=== PATIENT | male | born 2000 | race Caucasian/White ===

== ENCOUNTER 2018-09-26 23:42 | Inpatient (IN) ==
[2018-09-27] MEDS ORDERED: Sod Chloride 0.9% Inj 1,000 ML IV.SIG SCH
[2018-09-27] MEDS ORDERED: ceFAZolin 2 GM Premix Inj 2 GM/50 ML PIGGYBACK IV.SIG ONE (00:02)
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
[2018-09-27] MEDS ORDERED: Morphine Sulfate Inj 2 MG/ML Vial IV.PUSH ONE (00:21)
[2018-09-27] MEDS ORDERED: Morphine Inj 4 MG/ML Vial ONE (00:22)
[2018-09-27 00:26] LABS: Baso % (Auto) 0.2 % (0.0-2.0); Hematocrit 39.7 % (39.0-51.0); Hemoglobin 13.2 gm/dL (13.0-17.0); Lymph % (Auto) 4.9 % (9.0-44.0); Mean Corpuscular HGB Conc 33.2 % (32.0-36.0); Mean Corpuscular Hemoglobin 28.9 pg (27.0-34.0); Mean Corpuscular Volume 87.1 fL (80.0-100.0); Mean Platelet Volume 7.6 fL (7.0-11.0); Mono # (Auto) 1.6 th/mm3 (0.0-0.9); Mono % (Auto) 7.8 % (0.0-8.0); Neut # (Auto) 18.2 th/mm3 (1.8-7.7); Neut % (Auto) 87.1 % (16.0-70.0); Platelet Count 293 th/mm3 (150-450); Red Blood Count 4.55 mil/mm3 (4.50-5.90); Red Cell Distribution Width 13.8 % (11.6-17.2); White Blood Count 20.9 th/mm3 (4.0-11.0)
[2018-09-27 00:36] LABS: INR 1.1 Ratio; Prothrombin Time 10.8 sec (9.8-11.6)
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
[2018-09-27] MEDS ORDERED: Morphine Inj 4 MG/ML Vial IV.PUSH PRN ×2 (03:46→09:35)
[2018-09-27] MEDS: Sod Chloride 0.9% Inj 1,000 ML IV.SIG SCH ×2 (03:58→13:34)
[2018-09-27] MEDS ORDERED: ceFAZolin Inj 1 GM in Sodium Chlor 0.9% Inj 100 ML IV.SIG SCH (07:00)
[2018-09-27 07:04] LABS: Anion Gap 6 meq/L (5-15); Blood Urea Nitrogen 9 mg/dL (7-18); Calcium 8.3 mg/dL (8.5-10.1); Carbon Dioxide 25.9 meq/L (21.0-32.0); Chloride 106 meq/L (98-107); Glomerular Filtration Rate Greater Than 89 mL/min (>89); Glucose,Random 108 mg/dL (74-106); Sodium 138 meq/L (136-145)
[2018-09-27] MEDS ORDERED: Acetaminophen 325 MG Tablet PO PRN (07:12)
[2018-09-27] MEDS ORDERED: Potassium Phosphate Inj 30 MMOL in Sodium Chlor 0.9% Inj 250 ML IV.SIG PRN (07:14)
[2018-09-27] MEDS ORDERED: Potassium Chlor 40 mEq Premix 40 MEQ/100 ML PIGGYBACK IV.SIG PRN ×2 (07:14)
[2018-09-27] MEDS ORDERED: Sodium Phosphate Inj 30 MMOL in Sodium Chlor 0.9% Inj 250 ML IV.SIG PRN (07:14)
[2018-09-27] MEDS ORDERED: Magnesium Sulfate Inj 2 GM in Sodium Chlor 0.9% Inj 96 ML IV.SIG PRN (07:14)
[2018-09-27] MEDS ORDERED: Potassium Phosphate 500 MG Soluble Tablet PO PRN ×2 (07:14)
[2018-09-27] MEDS ORDERED: Potassium Chlor 20 mEq Premix 20 MEQ/100 ML PIGGYBACK IV.SIG PRN ×2 (07:14)
[2018-09-27] MEDS ORDERED: Magnesium Sulfate Inj 4 GM in Sodium Chlor 0.9% Inj 92 ML IV.SIG PRN (07:14)
[2018-09-27] MEDS ORDERED: Potassium Chloride Liq 20 MEQ/15 ML UDC PO PRN ×2 (07:14)
[2018-09-27] MEDS ORDERED: Magnesium Oxide 400 MG Tablet PO PRN (07:14)
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
[2018-09-27] MEDS ORDERED: Tranexamic Acid Inj 1,000 MG/10 ML Ampul ONE (07:59)
[2018-09-27] MEDS ORDERED: Sod Chloride 0.9% Inj 1,000 ML IV.CONT SCH (08:00)
[2018-09-27] MEDS ORDERED: ceFAZolin 1 GM Premix Inj 2 GM/100 ML PIGGYBACK IV.SIG ONE (08:06)
[2018-09-27] MEDS ORDERED: Senna/Docusate Sodium 8.6/50 MG Tablet PO SCH (09:00)
[2018-09-27] MEDS ORDERED: Tranexamic Acid Inj 1,000 MG in Sodium Chlor 0.9% Inj 100 ML IV.SIG SCH ×4 (09:16→11:30)
[2018-09-27] MEDS ORDERED: Sodium Chloride 0.9% 2 ML Flush PRN IV.FLUSH (09:27)
[2018-09-27] MEDS ORDERED: Aluminum/Magnesium/Simethacone Susp 30 ML UDC PO PRN (09:35)
[2018-09-27] MEDS ORDERED: Bisacodyl 10 MG Supp RECTAL PRN (09:35)
[2018-09-27] MEDS ORDERED: Post-op Orders (for Pharmacy) OTHER STA (09:35)
[2018-09-27] MEDS ORDERED: Zolpidem Tartrate 5 MG Tablet PO PRN (09:35)
--- NOTE | 2018-09-27 09:42 | P.OP ---
Preoperative Diagnosis: Left grade 3A open tibia/fibula fracture Postoperative Diagnosis: Same Date of procedure: 09/27/18 Procedure: Left leg irrigation of skin and subcutaneous tissue, muscle, and bone for open fracture. Left leg open treatment of tibia fracture with intramedullary nail Anesthesia: SOFIYA Surgeon: Hunter Dunn MD Director Corporate Communications: HASEEB Francis The surgical procedure was assisted by my Advanced Registered Nurse Practitioner. My DISTRICT MEDICAL EXAMINER presence was necessary throughout this case for the manipulation and positioning of the surgical extremity. My DISTRICT MEDICAL EXAMINER was assisting me throughout the duration of this procedure. The skill set of an Advance Registered Nurse Practitioner was medically necessary to complete this procedure. During the surgical case, the instructional technology coach was working at the back table and the Advance Registered Nurse Practitioner was directly assisting me. Operation and Findings: Implants: Synthes tibial nail, size: 10 x 315 Estimated blood loss: 250 cc The patient received intravenous vancomycin and Ancef. After the appropriate anesthesia was administered, the patient was prepped and draped in the supine position in the usual sterile fashion. Skin assessment showed a 4 cm fairly simple transverse laceration over the fracture site. There was a small amount of gross contamination. There was mild swelling noted to the leg. We extended the laceration more laterally. We remove the gross contamination with a rondure. This was a couple of small specks of what looked like dirt. We did find a little bit of dirt ground into the end of the bone. We remove this with a combination of rondure and curette. There was minimal contamination within the muscle which was removed. The visualized muscle was in good condition. We made sure that there was no further contamination within the bone or soft tissues. There was a single small to moderate-sized butterfly fragment which was removed as it was devitalized of all soft tissue. We then thoroughly irrigated with 3 L of saline utilizing a pulse lavage. We exchanged instruments, gloves, and new underlying drape. We made incision proximal to the patella. We carefully dissected down to the quadriceps tendon. An in-line longitudinal split to the quadriceps tendon was completed. The capsule of the knee was entered. We placed the smooth trocar within the knee joint down to the proximal tibia, protecting the patella and trochlea during the case. We then reduced the tibia fracture manually and under fluoroscopic imaging. A ball-tipped guidewire was placed into the tibial shaft, passing the fracture site. This was placed down to the distal physeal line of the tibia. We then sequentially reamed the tibia to 1 mm larger than the implanted tibial nail. We obtained good cortical chatter. We measured the appropriate length for the tibial nail. We then passed the tibial nail into the medullary canal of the tibia. The fracture was anatomically reduced as the nail was passed. I could also visualize the fracture through the open wound which showed anatomic alignment. There is good cortical apposition. The nail was secured proximally with 2 screw, using the associated jig as a guide .We used the perfect [place] technique distally to visualize the distal tibial screw holes. We placed 2 screws distally. We thoroughly irrigated the incisions including a lavage of the arthrotomy site proximally. The quadriceps split was closed with a #1 Vicryl. The remaining incisions were closed with #2-0 Vicryl, followed by jody. The traumatic wound was closed with 2-0 Vicryl followed by 2-0 nylon. The postoperative plan is for 25% weightbearing. Chemical DVT prophylaxis will be performed with aspirin.
--- NOTE | 2018-09-27 10:01 | XR ---
EXAM DATE: 09/27/2018 9:55 AM EST AGE/SEX: 18 years / Male INDICATIONS: Post hardware placement left tibia CLINICAL DATA: This is the patient's subsequent encounter. Patient reports that signs and symptoms h ave been present for 2 days and indicates a pain score of Nonresponsive. MEDICAL/SURGICAL HISTORY: None. None. COMPARISON: Unknown, LEFT TIBIA, 09/27/2018. [facility], TIBIA FIBULA LEFT 2V, 09/27/2018. . FINDINGS: Fluoroscopic imaging of the left tibia and fibula demonstrate intramedullary fartun traversing the mid d iaphyseal tibial fracture with good anatomic alignment. Stable appearance of a comminuted left mid ti bial fracture with slight lateral displacement. CONCLUSION: Interval fixation of the mid tibial fracture with good anatomic alignment. Stable appearance of a min imally displaced comminuted left mid fibular fracture. Electronically signed by: Devi Coyle MD Board Certified Radiologist 09/27/2018 10:00 AM LISA Ayala
[2018-09-27] MEDS ORDERED: fentaNYL Citrate Inj 100 MCG/2 ML Ampul ONE ×2 (10:17)
[2018-09-27] MEDS: Pantoprazole Inj 40 MG Vial IV.PUSH SCH (12:10)
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
--- NOTE | 2018-09-27 15:07 | OTSOAPIP ---
PATIENT UNDERGOING SURGICAL INTERVENTION OF LEFT TIB/FIB FRACTURE. WILL PLAN TO EVALUATE PATIENT NEXT DAY. Therapist: Dora Ortiz OTR/L Signature on file
[2018-09-27] MEDS: ceFAZolin Inj 1 GM in Sodium Chlor 0.9% Inj 100 ML IV.SIG SCH ×2 (17:56→22:13)
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
[2018-09-27] MEDS ORDERED: Sodium Chloride 0.9% 2 ML Flush BID IV.FLUSH SCH (21:00)
[2018-09-27] MEDS: Senna/Docusate Sodium 8.6/50 MG Tablet PO SCH (22:14)
[2018-09-27] MEDS: Multivitamin/Minerals Therapeutic Tablet PO SCH (22:14)
[2018-09-28] MEDS: Sod Chloride 0.9% Inj 1,000 ML IV.SIG SCH ×2 (01:16→10:11)
[2018-09-28] MEDS: ceFAZolin Inj 1 GM in Sodium Chlor 0.9% Inj 100 ML IV.SIG SCH ×5 (01:17→20:58)
[2018-09-28] MEDS ORDERED: Chlorhexidine Gluconate 2% 1 Pack (2 Cloths) TOPICAL SCH (04:00)
[2018-09-28] MEDS ORDERED: Chlorhexidine Gluconate 2% 1 Pack (2 Cloths) TOPICAL PRN (04:00)
[2018-09-28 06:01] LABS: Baso # (Auto) 0.1 th/mm3 (0.0-0.2); Baso % (Auto) 0.4 % (0.0-2.0); Eos # (Auto) 0.3 th/mm3 (0.0-0.4); Eos % (Auto) 2.3 % (0.0-4.0); Hematocrit 31.2 % (39.0-51.0); Hemoglobin 10.6 gm/dL (13.0-17.0); Lymph # (Auto) 1.3 th/mm3 (1.0-4.8); Lymph % (Auto) 9.4 % (9.0-44.0); Mean Corpuscular HGB Conc 34.1 % (32.0-36.0); Mean Corpuscular Hemoglobin 29.3 pg (27.0-34.0); Mean Corpuscular Volume 85.8 fL (80.0-100.0); Mean Platelet Volume 7.4 fL (7.0-11.0); Mono % (Auto) 7.5 % (0.0-8.0); Neut # (Auto) 10.9 th/mm3 (1.8-7.7); Neut % (Auto) 80.4 % (16.0-70.0); Platelet Count 224 th/mm3 (150-450); Red Blood Count 3.64 mil/mm3 (4.50-5.90); Red Cell Distribution Width 13.6 % (11.6-17.2); White Blood Count 13.6 th/mm3 (4.0-11.0)
[2018-09-28 06:23] LABS: Alanine Aminotransferase 27 U/L (9-52); Albumin 2.9 g/dL (3.4-5.0); Anion Gap 6 meq/L (5-15); Aspartate Aminotransferase 23 U/L (15-39); Blood Urea Nitrogen 8 mg/dL (7-18); Calcium 7.8 mg/dL (8.5-10.1); Carbon Dioxide 28.9 meq/L (21.0-32.0); Chloride 107 meq/L (98-107); Glomerular Filtration Rate Greater Than 89 mL/min (>89); Glucose,Random 129 mg/dL (74-106); Potassium 3.7 meq/L (3.5-5.1); Sodium 142 meq/L (136-145)
[2018-09-28 06:26] LABS: Alkaline Phosphatase 69 U/L (45-117); Creatine Kinase 718 U/L (39-308); Total Protein 5.9 g/dL (6.4-8.2)
[2018-09-28 06:40] LABS: CKMB Percent 0.1 % (0.0-4.0)
[2018-09-28] MEDS: Senna/Docusate Sodium 8.6/50 MG Tablet PO SCH ×2 (08:45→20:57)
[2018-09-28] MEDS: Multivitamin/Minerals Therapeutic Tablet PO SCH ×2 (08:45→20:57)
[2018-09-28] MEDS: Pantoprazole Inj 40 MG Vial IV.PUSH SCH (08:47)
[2018-09-28] MEDS ORDERED: Gadobutrol PF 2 MMOL/2 ML Vial (for RAD) IV.SIG ONE (10:43)
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
--- NOTE | 2018-09-28 12:31 | P.PNOP ---
Subjective Interval history: The patient is resting comfortably in bed in no acute distress. The patient's father is at bedside. The patient reports mild to moderate discomfort to the left lower extremity with movement. Overall the patient's preop pain has improved. Physical Exam Vital signs: Vital Signs 09/27/18 13:00 09/27/18 13:06 09/27/18 21:41 Temperature 98.9 F Pulse Rate 103 H 114 H Respiratory Rate 24 18 Blood Pressure 120/58 L Pulse Oximetry 97 97 95 09/27/18 23:06 09/28/18 00:11 09/28/18 04:10 Temperature 98.5 F 98.7 F Pulse Rate 105 H 112 H Respiratory Rate 18 18 18 Blood Pressure 127/59 L 132/62 Pulse Oximetry 94 L 95 09/28/18 05:26 09/28/18 07:54 09/28/18 08:00 Temperature 99.0 F Pulse Rate 109 H Respiratory Rate 18 18 Blood Pressure 137/74 Pulse Oximetry 95 95 Intake & Output 09/27/18 09/28/18 09/28/18 18:59 06:59 18:59 Intake Total 941.6 / 941.6 3300 / 3300 100 / 100 Output Total 250 / 250 600 / 600 Balance 691.6 / 691.6 2700 / 2700 100 / 100 Intake: IV 190.6 / 190.6 3300 / 3300 100 / 100 LR 1000 mL Inj 1,000 ML @ 80 2000 / 2000 mls/hr IV.CONT .[id number] [facility] Rx# :[id number] NS Inj 1,000 ML @ 100 mls/hr IV 1000 / 1000 .SIG .Q10H [facility] Rx#:[id number] Cyklokapron Inj 1,000 MG In NS 90.6 / 90.6 Inj 100 ML @ 200 mls/hr IV.SIG ONCE [facility] Rx#:[id number] Ancef Inj 1 GM In NS Inj 100 ML 100 / 100 200 / 200 100 / 100 @ 200 mls/hr IV.SIG Q6H [facility] Rx #:[id number] Anesthesia Amount 751 / 751 Output: Urine 600 / 600 Estimated Blood Loss 250 / 250 Other: Date of Last Bowel Movement 09/26/18 09/26/18 Narrative: The patient's dressings are clean, dry, and intact. EHL/TA/G are intact. 2+ pedal pulse. The patient's calf is soft and nontender. Sensation is intact to light touch distally. - Urinary Catheter Management Indwelling Urethral Catheter Cath placed during this visit: no Results - Labs CBC & Chem 7: 09/28/18 04:49 09/28/18 04:49 Laboratory Results - last 24 hr 09/28/18 09/28/18 04:49 04:49 WBC 13.6 H RBC 3.64 L Hgb 10.6 L D Hct 31.2 L MCV 85.8 MCH 29.3 MCHC 34.1 RDW 13.6 Plt Count 224 MPV 7.4 Neut % (Auto) 80.4 H Lymph % (Auto) 9.4 [place] % (Auto) 7.5 Eos % (Auto) 2.3 Baso % (Auto) 0.4 Neut # (Auto) 10.9 H Lymph # (Auto) 1.3 [place] # (Auto) 1.0 H Eos # (Auto) 0.3 Baso # (Auto) 0.1 WBC Differential . Differential Comment Auto diff final Sodium 142 Potassium 3.7 Chloride 107 Carbon Dioxide 28.9 Anion Gap 6 BUN 8 Creatinine 0.90 Estimated GFR Greater than 89 Random Glucose 129 H Calcium 7.8 L Total Bilirubin 0.5 AST 23 ALT 27 Alkaline Phosphatase 69 Total Creatine Kinase 718 H CK-MB (CK-2) Less than 1.0 CK-MB (CK-2) % 0.1 Total Protein 5.9 L Albumin 2.9 L - Imaging Impressions Head CT 09/27/18 00:00 CONCLUSION: 1. Asymmetry in the size of the ventricles with the right larger than the left and slight, 5 mm left to right subfalcine shift. 2. However, there is no findings of cerebral edema or intracranial hemorrhage. I believe the ventricular asymmetry and midline shift is probably patient's baseline. Please correlate with neurologic exam. 3. No fracture. . Head MRI 09/28/18 00:00 CONCLUSION: 1. There are no acute findings. The asymmetry in the ventricular system is nonacute in appearance and likely patient's baseline. Assessment and Plan - Assessment and Plan POD #1: Left leg irrigation of skin and subcutaneous tissue, muscle, and bone for open fracture. Left leg open treatment of tibia fracture with intramedullary nail 1. Weightbearing status: 25% weightbearing on the left lower extremity 2. Aspirin for DVT prophylaxis 3. Ice to the left lower extremity as needed. 4. Anticipatory discharged to custodial facility versus home with home health on Friday after receiving his full course of antibiotics. 5. Stable per orthopedics. Okay to discharge once medically cleared and arrangements have been made. 6. Follow-up in the office with Dr. Dunn or Ruben Quiñones APRN in 1-2 weeks.
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
[2018-09-29] MEDS: Sod Chloride 0.9% Inj 1,000 ML IV.SIG SCH ×2 (00:20→08:03)
[2018-09-29] MEDS: ceFAZolin Inj 1 GM in Sodium Chlor 0.9% Inj 100 ML IV.SIG SCH ×5 (01:57→20:30)
--- NOTE | 2018-09-29 06:49 | P.DCO ---
- Physical Therapy Order: Evaluate and treat, Improve ambulation, Strength and gait training - Home Health Nursing Order: Medical education, Signs/symptoms of disease process, Medication education-adverse effect, Nursing assessment with vital signs - Case Management Consult Case Management Consult-Home Health: Yes - Certification I have seen patient Santos Rich on 09/29/18. My clinical findings support the need for the requested home health care services because: Limited mobility due to disease progression, Deconditioned with increased weakness, Limited ability to care for self, Need for psychosocial assistance, Impaired cognition/judgement, High risk of falls, Infection with risk of complications I certify that my clinical findings support that this patient is homebound because: Post-op weakness, Impaired cognitive ability/safety, Unsteady gait/balance, Unsafe to leave home unassisted, Need for psychosocial assistance, Non- ambulatory: confined to bed or chair, Unable to use public transportation
[2018-09-29] MEDS: Pantoprazole Inj 40 MG Vial IV.PUSH SCH ×2 (07:52→09:34)
[2018-09-29] MEDS: Multivitamin/Minerals Therapeutic Tablet PO SCH ×3 (07:54→20:31)
[2018-09-29] MEDS: Senna/Docusate Sodium 8.6/50 MG Tablet PO SCH ×3 (07:54→20:31)
[2018-09-29 11:02] LABS: Baso # (Auto) 0.1 th/mm3 (0.0-0.2); Baso % (Auto) 0.4 % (0.0-2.0); Eos # (Auto) 0.6 th/mm3 (0.0-0.4); Eos % (Auto) 4.5 % (0.0-4.0); Hematocrit 33.3 % (39.0-51.0); Hemoglobin 11.1 gm/dL (13.0-17.0); Lymph # (Auto) 1.6 th/mm3 (1.0-4.8); Mean Corpuscular HGB Conc 33.3 % (32.0-36.0); Mean Corpuscular Hemoglobin 29.4 pg (27.0-34.0); Mean Corpuscular Volume 88.1 fL (80.0-100.0); Mean Platelet Volume 7.2 fL (7.0-11.0); Mono # (Auto) 1.4 th/mm3 (0.0-0.9); Neut % (Auto) 73.1 % (16.0-70.0); Platelet Count 235 th/mm3 (150-450); Red Blood Count 3.78 mil/mm3 (4.50-5.90); Red Cell Distribution Width 13.9 % (11.6-17.2); White Blood Count 13.7 th/mm3 (4.0-11.0)
[2018-09-29 11:32] LABS: Albumin 2.9 g/dL (3.4-5.0); Anion Gap 7 meq/L (5-15); Aspartate Aminotransferase 27 U/L (15-39); Blood Urea Nitrogen 9 mg/dL (7-18); Calcium 8.2 mg/dL (8.5-10.1); Carbon Dioxide 28.9 meq/L (21.0-32.0); Chloride 106 meq/L (98-107); Glomerular Filtration Rate Greater Than 89 mL/min (>89); Glucose,Random 94 mg/dL (74-106); Potassium 3.7 meq/L (3.5-5.1); Sodium 142 meq/L (136-145)
[2018-09-29 11:33] LABS: Alanine Aminotransferase 21 U/L (9-52)
[2018-09-29 11:35] LABS: Alkaline Phosphatase 79 U/L (45-117); Total Protein 6.1 g/dL (6.4-8.2)
--- NOTE | 2018-09-29 11:39 | XR ---
EXAM DATE: 09/29/2018 11:32 AM EST AGE/SEX: 18 years / Male INDICATIONS: Chest pain and short of breath. CLINICAL DATA: This is the patient's initial encounter. Patient reports that signs and symptoms have been present for 1 day and indicates a pain score of 5/10. MEDICAL/SURGICAL HISTORY: . Asperger's. None. COMPARISON: No prior exams available for comparison. FINDINGS: Portable AP view of the chest demonstrates a normal-sized cardiac silhouette. There are bilateral mid and lower lung zone interstitial opacities with airspace consolidation in the left lower lobe. No pl eural effusion or pneumothorax is identified. Bones demonstrate no acute abnormality. CONCLUSION: Left lower lung zone airspace consolidation and abnormal interstitial opacities in the mid and lower lung zones bilaterally. In the appropriate clinical setting the findings could indicate pulmonary maria g ma. Electronically signed by: Akil Gonzalez MD Board Certified Radiologist 09/29/2018 11:38 AM EST
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
[2018-09-29 19:07] LABS: ABG Base Excess 4.7 mmol/L (-2-2); ABG PCO2 44 mmHg (38-42); ABG PO2 80 mmHg (61-120)
--- NOTE | 2018-09-29 19:10 | P.PNOP ---
Subjective Interval history: The patient has no new complaints as far as the left leg is concerned. Physical Exam Vital signs: Vital Signs 09/28/18 20:03 09/28/18 21:00 09/28/18 21:30 Temperature 98.3 F Pulse Rate 107 H Respiratory Rate 18 18 18 Blood Pressure 133/64 Pulse Oximetry 94 L Pulse Oximetry [Resting on Room Air] Pulse Oximetry [Resting with Oxygen] 09/29/18 00:48 09/29/18 01:10 09/29/18 04:00 Temperature 98.1 F 98 F Pulse Rate 94 H 90 Respiratory Rate 16 18 18 Blood Pressure 116/56 L 110/53 L Pulse Oximetry 94 L 92 L Pulse Oximetry [Resting on Room Air] Pulse Oximetry [Resting with Oxygen] 09/29/18 08:09 09/29/18 10:18 09/29/18 10:47 Temperature 99.7 F H Pulse Rate 110 H 110 H Respiratory Rate 20 Blood Pressure 125/55 L Pulse Oximetry 84 L 97 88 L Pulse Oximetry [Resting on Room Air] Pulse Oximetry [Resting with Oxygen] 09/29/18 10:49 09/29/18 10:52 09/29/18 10:53 Temperature Pulse Rate 98 H Respiratory Rate Blood Pressure Pulse Oximetry 86 L Pulse Oximetry [Resting on Room Air] 79 L Pulse Oximetry [Resting with Oxygen] 92 L 09/29/18 10:55 09/29/18 10:56 09/29/18 10:58 Temperature Pulse Rate Respiratory Rate Blood Pressure Pulse Oximetry 85 L 95 93 L Pulse Oximetry [Resting on Room Air] Pulse Oximetry [Resting with Oxygen] 09/29/18 11:06 09/29/18 15:18 09/29/18 15:23 Temperature 98.5 F 99.4 F Pulse Rate 94 H 98 H Respiratory Rate 20 19 Blood Pressure 115/57 L 138/86 Pulse Oximetry 95 98 96 Pulse Oximetry [Resting on Room Air] Pulse Oximetry [Resting with Oxygen] Intake & Output 09/29/18 09/29/18 09/30/18 06:59 18:59 06:59 Intake Total 200 / 200 660 / 660 Balance 200 / 200 660 / 660 Intake: IV 200 / 200 660 / 660 LR 1000 mL Inj 1,000 ML @ 80 460 / 460 mls/hr IV.CONT .[id number] [facility] Rx# :[id number] Ancef Inj 1 GM In NS Inj 100 ML 200 / 200 200 / 200 @ 200 mls/hr IV.SIG Q6H [facility] Rx #:[id number] Other: Date of Last Bowel Movement 09/26/18 09/26/18 Narrative: The left leg is dressed. There is no drainage on the dressing. He can move the toes well. There is brisk capillary refill of the toes. The compartment is soft. - Urinary Catheter Management Indwelling Urethral Catheter Cath placed during this visit: no Results - Labs CBC & Chem 7: 09/29/18 10:39 09/29/18 10:39 Laboratory Results - last 24 hr 09/29/18 09/29/18 09/29/18 10:39 10:39 18:50 WBC 13.7 H RBC 3.78 L Hgb 11.1 L Hct 33.3 L MCV 88.1 MCH 29.4 MCHC 33.3 RDW 13.9 Plt Count 235 MPV 7.2 Neut % (Auto) 73.1 H Lymph % (Auto) 12.0 [place] % (Auto) 10.0 H Eos % (Auto) 4.5 H Baso % (Auto) 0.4 Neut # (Auto) 10.0 H Lymph # (Auto) 1.6 [place] # (Auto) 1.4 H Eos # (Auto) 0.6 H Baso # (Auto) 0.1 WBC Differential . Differential Comment Auto diff final Puncture Site Right radial Patient Temperature 98.6 O2 Saturation 94 ABG pH 7.43 H ABG pCO2 44 H ABG pO2 80 ABG HCO3 29 H ABG O2 Content 15.7 ABG Base Excess 4.7 H ABG Methemoglobin 1.1 Nick Test Present Hemoglobin 11.8 L Carboxyhemoglobin 0.9 O2 Delivery Device Face mask Liter Flow 7.00 Critical Value No Sodium 142 Potassium 3.7 Chloride 106 Carbon Dioxide 28.9 Anion Gap 7 BUN 9 Creatinine 0.82 Estimated GFR Greater than 89 Random Glucose 94 Calcium 8.2 L Total Bilirubin 0.8 AST 27 ALT 21 Alkaline Phosphatase 79 Total Protein 6.1 L Albumin 2.9 L - Imaging Impressions Chest X-Ray 09/29/18 10:41 CONCLUSION: Left lower lung zone airspace consolidation and abnormal interstitial opacities in the mid and lower lung zones bilaterally. In the appropriate clinical setting the findings could indicate pulmonary edema. Assessment and Plan - Assessment and Plan POD #2: Left leg irrigation of skin and subcutaneous tissue, muscle, and bone for open fracture. Left leg open treatment of tibia fracture with intramedullary nail 1. Weightbearing status: 25% weightbearing on the left lower extremity 2. Aspirin for DVT prophylaxis 3. Ice to the left lower extremity as needed. 4. Pulmonary care for low O2 sats. He is going for a CT angios to rule out PE. I discussed with physician that if the CT angio is positive for PE then it would be okay to move forward with further anticoagulation. 5. Stable per orthopedics. Okay to discharge once medically cleared and arrangements have been made. 6. Follow-up in the office with Dr. Dunn or Ruben Quiñones APRN in 1-2 weeks.
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
--- NOTE | 2018-09-29 19:49 | CT ---
EXAM DATE: 09/29/2018 7:41 PM EST AGE/SEX: 18 years / Male INDICATIONS: Follow up hemorrhage. CLINICAL DATA: This is the patient's subsequent encounter. Patient reports that signs and symptoms h ave been present for 2 days and indicates a pain score of 0/10. MEDICAL/SURGICAL HISTORY: None. None. RADIATION DOSE: 48.23 CTDI (mGy) ;Tabletop exam COMPARISON: [facility] [place], CT HEAD W/O CONTRAST, 09/27/2018. . TECHNIQUE: CT of the head without contrast. Using automated exposure control and adjustment of the mA and/or kV according to patient size, radiation dose was kept as low as reasonably achievable to ob tain optimal diagnostic quality images. DICOM format image data is available electronically for revi ew and comparison. FINDINGS: Cerebrum: The ventricles are asymmetric in size more prominent on the right but unchanged. No evide nce of midline shift, mass lesion, hemorrhage or acute infarction. No extraaxial fluid collections a re seen. Posterior Fossa: The cerebellum and brainstem are intact. The 4th ventricle is midline. The cerebe llopontine angle is unremarkable. Extracranial: The visualized portion of the orbits is intact. Skull: The calvaria is intact. No evidence of skull fracture. CONCLUSION: 1. Stable CT brain. 2. Asymmetry in the size of the ventricles is unchanged. . Electronically signed by: Krunal Dill MD Board Certified Radiologist 09/29/2018 7:47 PM EST
--- NOTE | 2018-09-29 19:58 | CT ---
EXAM DATE: 09/29/2018 7:51 PM EST AGE/SEX: 18 years / Male INDICATIONS: Pulmonary edema. Evaluate for emboli. CLINICAL DATA: This is the patient's initial encounter. Patient reports that signs and symptoms have been present for 1 day and indicates a pain score of 0/10. MEDICAL/SURGICAL HISTORY: None. None. RADIATION DOSE: 22.35 CTDI (mGy) COMPARISON: No prior exams available for comparison. TECHNIQUE: Volumetric scanning was performed using a multi-row detector CT scanner during bolus infu latrell of 75 ml Omnipaque 350 (iohexol) nonionic water-soluble contrast as a single exam dose. The chris a was post processed with a variety of visualization algorithms including full volume maximum intensi ty projection and sliding thin slab reformation. Using automated exposure control and adjustment of the mA and/or kV according to patient size, radiation dose was kept as low as reasonably achievable t o obtain optimal diagnostic quality images. DICOM format image data is available electronically for review and comparison. FINDINGS: No filling defects to suggest pulmonary embolic disease. Bilateral airspace consolidation and groundglass opacity in both lungs, especially in the lower lobes . Small bilateral pleural effusions. No significant pericardial effusion. CONCLUSION: 1. Negative for pulmonary embolus. 2. Groundglass opacity in lung consolidation. Differential diagnosis includes edema and infection. T race pleural effusions. Electronically signed by: Rajinder Nagel MD Board Certified Radiologist 09/29/2018 7:56 PM EST
[2018-09-29] MEDS: MethylPREDNISolone Sod Succinate Inj 40 MG/ML Vial IV.PUSH SCH (22:56)
[2018-09-29] MEDS: Enoxaparin Inj 30 MG/0.3 ML Syringe SQ SCH (22:59)
[2018-09-30 05:44] LABS: Activated Partial Thrombo Time 31.5 sec (23.4-31.7)
[2018-09-30] MEDS: Multivitamin/Minerals Therapeutic Tablet PO SCH (09:22)
[2018-09-30] MEDS: Pantoprazole Inj 40 MG Vial IV.PUSH SCH (09:22)
[2018-09-30] MEDS: Senna/Docusate Sodium 8.6/50 MG Tablet PO SCH (09:23)
[2018-09-30] MEDS: MethylPREDNISolone Sod Succinate Inj 40 MG/ML Vial IV.PUSH SCH (11:13)
[2018-09-30] MEDS: Enoxaparin Inj 30 MG/0.3 ML Syringe SQ SCH (11:13)
--- NOTE | 2018-09-30 12:54 | P.PN ---
Subjective Interval history: Is feeling much better today. Off oxygen saturation 94. Resting comfortably. CT chest shows no PE but has groundglass infiltrates. No chest pain or shortness of breath at rest. No fever or chills Physical Exam Vital signs: Vital Signs 09/29/18 15:18 09/29/18 15:23 09/29/18 19:00 Temperature 99.4 F Pulse Rate 98 H Respiratory Rate 19 Blood Pressure 138/86 Pulse Oximetry 98 96 92 L 09/29/18 19:18 09/29/18 19:19 09/29/18 19:30 Temperature 98 F Pulse Rate 102 H Respiratory Rate 18 Blood Pressure 162/56 H Pulse Oximetry 90 L 93 L 93 L 09/29/18 20:42 09/29/18 21:53 09/29/18 22:00 Temperature Pulse Rate 96 H 90 Respiratory Rate 25 H 26 H Blood Pressure 135/85 Pulse Oximetry 93 L 92 L 88 L 09/29/18 23:00 09/29/18 23:48 09/30/18 00:00 Temperature 99.3 F Pulse Rate 95 H 73 Respiratory Rate 24 18 Blood Pressure 131/69 117/61 Pulse Oximetry 96 97 97 09/30/18 01:00 09/30/18 02:00 09/30/18 03:00 Temperature Pulse Rate 81 64 60 Respiratory Rate 21 17 18 Blood Pressure 126/69 116/64 105/56 L Pulse Oximetry 98 99 99 09/30/18 03:22 09/30/18 04:00 09/30/18 05:00 Temperature 97.9 F Pulse Rate 65 56 L 58 L Respiratory Rate 18 18 17 Blood Pressure 107/58 L 115/60 Pulse Oximetry 99 99 09/30/18 06:00 09/30/18 08:15 09/30/18 10:54 Temperature Pulse Rate 68 82 Respiratory Rate 19 24 Blood Pressure 112/62 Pulse Oximetry 100 92 L 09/30/18 11:12 Temperature Pulse Rate Respiratory Rate 20 Blood Pressure Pulse Oximetry Intake & Output 09/29/18 09/30/18 09/30/18 18:59 06:59 18:59 Intake Total 660 / 660 Balance 660 / 660 Weight 76.6 kg Intake: IV 660 / 660 LR 1000 mL Inj 1,000 ML @ 80 460 / 460 mls/hr IV.CONT .[id number] [facility] Rx# :[id number] Ancef Inj 1 GM In NS Inj 100 ML 200 / 200 @ 200 mls/hr IV.SIG Q6H [facility] Rx #:[id number] Other: # Voids 3 Date of Last Bowel Movement 09/26/18 09/30/18 # Bowel Movements 1 Narrative: The left leg is dressed. There is no drainage on the dressing. He can move the toes well. There is brisk capillary refill of the toes. GENERAL: Averagely built young white male alert no distress SKIN: Warm and dry. HEAD: Atraumatic. Normocephalic. EYES: Pupils equal and round. No scleral icterus. No injection or drainage. ENT: No nasal bleeding or discharge. Mucous membranes pink and moist. NECK: Trachea midline. No JVD. CARDIOVASCULAR: Regular rate and rhythm. RESPIRATORY: No accessory muscle use. Occasional bilateral scattered crackles. Breath sounds equal bilaterally. GASTROINTESTINAL: Abdomen soft, non-tender, nondistended. Hepatic and splenic margins not palpable. MUSCULOSKELETAL: Extremities without clubbing, cyanosis, or edema. Has a dressing at the left lower leg above the ankle NEUROLOGICAL: Awake and alert. No obvious cranial nerve deficits. Motor grossly within normal limits. Normal speech. PSYCHIATRIC: Appropriate mood and affect. - Urinary Catheter Management Indwelling Urethral Catheter Cath placed during this visit: no Results - Labs CBC & Chem 7: 09/29/18 10:39 09/29/18 10:39 Laboratory Results - last 24 hr 09/29/18 09/30/18 18:50 04:43 PT 10.0 INR 1.0 APTT 31.5 Puncture Site Right radial Patient Temperature 98.6 O2 Saturation 94 ABG pH 7.43 H ABG pCO2 44 H ABG pO2 80 ABG HCO3 29 H ABG O2 Content 15.7 ABG Base Excess 4.7 H ABG Methemoglobin 1.1 Nick Test Present Hemoglobin 11.8 L Carboxyhemoglobin 0.9 O2 Delivery Device Face mask Liter Flow 7.00 Critical Value No - Imaging Impressions Chest CTA 09/29/18 00:00 CONCLUSION: 1. Negative for pulmonary embolus. 2. Groundglass opacity in lung consolidation. Differential diagnosis includes edema and infection. Trace pleural effusions. Head CT 09/29/18 19:18 CONCLUSION: 1. Stable CT brain. 2. Asymmetry in the size of the ventricles is unchanged. . Assessment and Plan - Assessment (1) Pulmonary edema Code(s): J81.1 - Chronic pulmonary edema Status: Acute (2) Pneumonia Code(s): J18.9 - Pneumonia, unspecified organism Status: Acute (3) SAH (subarachnoid hemorrhage) Code(s): I60.9 - Nontraumatic subarachnoid hemorrhage, unspecified Status: Acute (4) Fracture of left tibia and fibula Code(s): S82.202A - Unspecified fracture of shaft of left tibia, initial encounter for closed fracture; S82.402A - Unspecified fracture of shaft of left fibula, initial encounter for closed fracture Status: Acute - Plan #1. O2 2 L nasal cannula as needed 2. albuterol nebs 4 times daily as needed 3. Incentive spirometry every 3 hours bedside 4. CBC BMP chest x-ray in a.m. 5. Lovenox 40 mg subcu daily 6. Solu-Medrol 40 mg IV twice daily 7. Rocephin 1 g IV daily times 5 days (4) Fracture of left tibia and fibula Qualifiers: Encounter type: initial encounter
[2018-09-30 13:41] VITALS: BP 138/62; PULSE 79; TEMP 98.6; O2SAT 94
[2018-09-30 13:42] VITALS: RESP 20
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
== END 2018-09-30 16:31 | disposition home or self-care (01) | DRG 958 ==
LOC: NEPE 23:42 → NEDA 09-27 00:03 → N03 09-27 03:15 → N06 09-27 18:05 → N03 09-29 21:55
PROVIDERS: ADMIT Surgery; ATTEND Surgery
CPT/HCPCS: 36600; 51798; 70450; 70553; 71010; 71045; 71275; 73590; 76000; 80048; 80053; 82550; 82552; 82805; 85025; 85610; 85730; 86850; 86900; 86901; 90774; 90784; 94150; 94618; 94620; 94640; 94650; 94665; 94667; 96374; 97110; 97116; 97162; 97167; 99285; A9585; C1713; C1769; C8952; C9113; J0690; J0696; J1650; J2270; J2405; J2920; J3010; J3370; J7030; J7120